=== PATIENT | female | born 1935 | race Caucasian/White ===

== ENCOUNTER 2017-05-26 09:31 | Emergency (ER) | payer MEDICARE, OTHER ==
[~2017-05-26] VITALS: Ht 170.2 cm; Wt 80.0 kg
[~2017-05-26 09:31] MED LIST: ASPI325T PO; METO25 PO; OYST500T77 PO; PRAV20TA67 PO; ZOFR4TAB3 SL
[2017-05-26 09:40] VITALS: BP 166/91; PULSE 73; RESP 18; TEMP 97.9; O2SAT 95
[2017-05-26] MEDS ORDERED: AMLO5TAB2 PO (09:52)
[2017-05-26] MEDS ORDERED: ASPI81CH6 CHEW (09:52)
[2017-05-26] MEDS ORDERED: LEVO88TA2 PO (09:52)
--- NOTE | 2017-05-26 10:29 | PD ---
HPI Chief Complaint: Musculoskeletal Complaint Time Seen by Provider: 10:29 Travel History International Travel<30 days: No Contact w/Intl Traveler<30days: No Traveled to known affect area: No History of Present Illness HPI Patient presents for evaluation of left wrist pain. Mildly demented and very pleasant. Friends report that they went to her house this morning and when she answered the door she is complaining of left wrist pain. Patient does not recall a fall misstep or trauma to the wrist. She was observed yesterday evening without pain. PFSH Past Medical History Cardiovascular Problems: No High Cholesterol: Yes Dementia: Yes (EARLY PER PARAMEDICS) Diabetes: No Diminished Hearing: No Hepatitis: No Hiatal Hernia: No Hypertension: Yes Respiratory: No Thyroid Disease: Yes Influenza Vaccination: Yes ?: Not Past Surgical History Abdominal Surgery: Yes (APPY) Appendectomy: Yes Gynecologic Surgery: Yes (HYSTERECTOMY) Hysterectomy: Yes Oral Surgery: Yes (T&A CHILDHOOD) Pacemaker: No Tonsillectomy: Yes Other Surgery: Yes Social History Alcohol Use: Yes (OCC) Tobacco Use: No Substance Use: No Allergies-Medications (Allergen,Severity, Reaction): Coded Allergies: propoxyphene (Unverified Adverse Reaction, Intermediate, HALLUCINATIONS, ) Reported Meds & Prescriptions Reported Meds & Active Scripts Active Reported Aspirin Low Dose (Aspirin) 81 Mg Chew 81 Mg CHEW DAILY Amlodipine (Amlodipine Besylate) 5 Mg Tab 5 Mg PO DAILY Levothyroxine (Levothyroxine Sodium) 88 Mcg Tab 88 Mcg PO DAILY Review of Systems General / Constitutional: No: Fever Eyes: No: Visual changes HENT: No: Headaches Cardiovascular: No: Chest Pain or Discomfort Respiratory: No: Shortness of Breath Gastrointestinal: No: Abdominal Pain Genitourinary: No: Dysuria Musculoskeletal: No: Pain Skin: No Rash Neurologic: No: Weakness Psychiatric: No: Depression Endocrine: No: Polydipsia Hematologic/Lymphatic: No: Easy Bruising Physical Exam Narrative GENERAL: Well-nourished, well-developed patient. SKIN: Focused skin assessment warm/dry. HEAD: Normocephalic. EYES: No scleral icterus. No injection or drainage. NECK: Supple, trachea midline. No JVD or lymphadenopathy. CARDIOVASCULAR: Regular rate and rhythm without murmurs, gallops, or rubs. RESPIRATORY: Breath sounds equal bilaterally. No accessory muscle use. GASTROINTESTINAL: Abdomen soft, non-tender, nondistended. MUSCULOSKELETAL: No cyanosis, or edema. BACK: Nontender without obvious deformity. No CVA tenderness. 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 EKG revealed sinus rhythm with first-degree block rate of 71. Last 72 hours Impressions Wrist X-Ray 05/26/17 0000 Signed Impressions: Service Date/Time: Friday, May 26, 2017 10:27 - CONCLUSION: Chronic change as described above. An acute abnormality is not seen. Kosta Morataya MD Shoulder X-Ray 05/26/17 0000 Signed Impressions: Service Date/Time: Friday, May 26, 2017 10:29 - CONCLUSION: No acute disease. Kosta Morataya MD Diagnosis Primary Impression: Left wrist sprain Qualified Codes: S63.502A - Unspecified sprain of left wrist, initial encounter Patient Instructions: General Instructions Additional Instructions: Velcro wrist splint for comfort, Motrin or Tylenol for pain, ice and elevate. Follow-up with PCP. Return to the emergency with any onset of new symptoms. Med/Other Pt SpecificInfo: No Meds Exist/No RX given Disposition: 01 DISCHARGE HOME Condition: Good Srikanth Horta MD May 26, 2017 10:29
--- NOTE | 2017-05-26 11:03 | RADRPT ---
EXAM DATE/TIME: 05/26/2017 10:27 [facility] COMPARISON: No previous studies available for comparison. INDICATIONS : Complains of left wrist pain. No known trauma. MEDICAL HISTORY : None. SURGICAL HISTORY : None. ENCOUNTER: Initial ACUITY: 1 week PAIN SCORE: 5/10 LOCATION: Left wrist FINDINGS: No fracture is seen. There is joint space narrowing and subchondral sclerosis at the lateral mid carp al region between the distal scaphoid and the base of the trapezoid bone. The radiocarpal joint is no rmally aligned. The bones appear osteopenic. CONCLUSION: Chronic change as described above. An acute abnormality is not seen. Kosta Morataya MD on May 26, 2017 at 11:00 Board Certified Radiologist. This report was verified electronically.
--- NOTE | 2017-05-26 11:04 | RADRPT ---
EXAM DATE/TIME: 05/26/2017 10:29 [facility] COMPARISON: No previous studies available for comparison. INDICATIONS : Left shoulder pain. No known trauma. MEDICAL HISTORY : None. SURGICAL HISTORY : ENCOUNTER: Initial ACUITY: 1 week PAIN SCORE: 5/10 LOCATION: Left shoulder FINDINGS: Two view examination of the left shoulder demonstrates no evidence of fracture or dislocation. The g lenohumeral and acromioclavicular joints are maintained. The bones appear osteopenic. CONCLUSION: No acute disease. Kosta Morataya MD on May 26, 2017 at 11:01 Board Certified Radiologist. This report was verified electronically.
[2017-05-26 11:19] VITALS: BP 158/85; PULSE 72; RESP 20; O2SAT 96
--- NOTE | 2017-05-26 12:44 | EKG ---
Date Performed: 05/26/2017 Time Performed: 10:00:59 PTAGE: 81 years EKG: Sinus rhythm WITH FIRST DEGREE AV BLOCK LOW QRS VOLTAGE IN PRECORDIAL LEADS ABNORMAL ECG PREVIOUS TRACING : 07/06/2014 18.34 Compared to previous tracing, nonspecific ST abnormality bobo s resolved. DOCTOR: Kumar Cooney Interpretating Date/Time 05/26/2017 12:42:06
== END 2017-05-26 12:16 | disposition home or self-care (01) ==
LOC: PHED 09:31
DX: S63.502A Unspecified sprain of left wrist, initial encounter (principal); I44.0 Atrioventricular block, first degree; I10 Essential (primary) hypertension; E78.00 Pure hypercholesterolemia, unspecified; F03.90 Unspecified dementia, unspecified severity, without behavioral disturbance, psychotic disturbance, mood disturbance, and anxiety; Z88.8 Allergy status to other drugs, medicaments and biological substances; Z79.82 Long term (current) use of aspirin; Z79.899 Other long term (current) drug therapy
CPT/HCPCS: 73030; 73100; 93005; 99284; L3908